=== PATIENT | male | born 1975 | race Caucasian/White ===

== ENCOUNTER 2017-01-10 15:30 | Outpatient (CLI) | payer OTHER ==
[2014-11-04 15:41] VITALS: BP 135/98
== END 2017-01-10 15:32 ==
LOC: LAB 15:30
PROVIDERS: ATTEND Physician Assistant
DX: N52.9 Male erectile dysfunction, unspecified (principal)
CPT/HCPCS: 36415; 84402

== ENCOUNTER 2017-02-03 07:44 | Outpatient (CLI) | payer OTHER ==
[2014-11-04 15:41] VITALS: BP 135/98
[2017-02-03 16:02] LABS: LH (LUTEINIZING HORMONE) 4.4 mIU/mL (1.7-8.6); TESTOSTERONE TOTAL 246.2 ng/dL (249.0-836.0)
== END 2017-02-03 07:46 ==
LOC: LAB 07:44
PROVIDERS: ATTEND Specialist
DX: E29.1 Testicular hypofunction (principal)
CPT/HCPCS: 36415; 83001; 83002; 84146; 84402; 84403

== ENCOUNTER 2017-02-26 07:15 | Outpatient (CLI) | payer OTHER ==
[2014-11-04 15:41] VITALS: BP 135/98
[2017-02-26 07:31] LABS: EOSINOPHILS % 4.1 % (0.0-6.8); MEAN CORPUSCULAR HEMOGLOBIN 28.9 pg (28.0-34.0); MEAN CORPUSCULAR VOLUME 89.4 fl (80.0-100.0); NEUTROPHILS # 3.6 # k/uL (1.4-7.7)
== END 2017-02-26 07:16 ==
LOC: LAB 07:15
PROVIDERS: ATTEND Specialist
DX: E29.1 Testicular hypofunction (principal)
CPT/HCPCS: 36415; 80061; 85025

== ENCOUNTER 2017-03-14 08:18 | Outpatient (CLI) | payer SELFPAY ==
[2014-11-04 15:41] VITALS: BP 135/98
== END 2017-03-14 08:20 ==
LOC: LAB 08:18
PROVIDERS: ATTEND Internal Medicine Endocrinology, Diabetes & Metabolism
DX: E29.1 Testicular hypofunction (principal)
CPT/HCPCS: 36415; 84402; 84403

== ENCOUNTER 2017-07-23 07:54 | Outpatient (CLI) | payer OTHER ==
[2014-11-04 15:41] VITALS: BP 135/98
[2017-07-23 08:46] LABS: BASOPHILS % 1.4 (0.0-1.5); EOSINOPHILS % 4.3 % (0.0-6.8); MEAN CORPUSCULAR HEMOGLOBIN 29.8 pg (28.0-34.0); MONOCYTES % 9.1 % (0.0-11.0); NEUTROPHILS # 3.5 # k/uL (1.4-7.7)
== END 2017-07-23 07:55 ==
LOC: LAB 07:54
PROVIDERS: ATTEND Specialist
DX: E29.1 Testicular hypofunction (principal)
CPT/HCPCS: 36415; 80061; 84153; 84402; 84403; 85025

== ENCOUNTER 2017-08-07 16:26 | Emergency (ER) | payer SELFPAY ==
[2017-08-07] MEDS ORDERED: 0.9 % SODIUM CHLORIDE 1,000 ML IV ONE ×2 (16:31→17:22)
[2017-08-07] MEDS ORDERED: LORazepam 2 MG/ML VIAL IVP ONE ×2 (16:33→16:39)
[2017-08-07] MEDS ORDERED: LORazepam 2 MG/ML VIAL ONE (16:33)
[2017-08-07] MEDS ORDERED: DIAZEPAM 5 MG/ML DISP.SYRIN IVP ONE (16:40)
[2017-08-07 16:45] LABS: BASOPHILS % 0.9 (0.0-1.5); EOSINOPHILS % 1.5 % (0.0-6.8); MEAN CORPUSCULAR HEMOGLOBIN 29.4 pg (28.0-34.0); MEAN CORPUSCULAR VOLUME 85.9 fl (80.0-100.0); MONOCYTES % 5.9 % (0.0-11.0); NEUTROPHILS # 11.5 # k/uL (1.4-7.7)
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
[2017-08-07 16:53] LABS: eGFR (African) > 60; eGFR (Non-African) > 60
[2017-08-07] MEDS ORDERED: AMITRIPTYLINE HCL 25 MG TABLET PO ONE (17:11)
--- NOTE | 2017-08-07 17:31 | Diagnostic Imaging Report ---
VALARIE NGO~ [facility] [id number] [facility] [address] [place], [place]. [address] ~ ~ ~ ~ Report Submission Date: Aug 07, 2017 5:10:59 PM CDT Patient ~ Study Name: YARELY ADORNO ~ Date: Aug 07, 2017 4:54:33 PM CDT ~ Modality Type: CR Gender: M ~ Description: CHEST : 73 ~ Institution: [facility] Physician: VALARIE NGO ~ ~ ~ ~ Examination: Portable chest History: Chest discomfort Comparison exam: None available Findings: Single view of the chest demonstrates a normal cardiac and mediastinal silhouette. Lordotic positioning. Lung burks without focal infiltrate. No effusion. Osseous structures are appropriate for age. Impression: No acute pulmonary process. ~ Electronically signed on Aug 07, 2017 5:10:59 PM CDT by: Marquis RAMIREZ
[2017-08-07 18:34] VITALS: BP 139/74
== END 2017-08-07 18:31 | disposition home or self-care (01) ==
LOC: ED 16:26
DX: E86.0 Dehydration (principal); Q07.00 Arnold-Chiari syndrome without spina bifida or hydrocephalus
CPT/HCPCS: 71010; 80053; 85025; J2060; J3360; J7030; 96361; 96374; 96375; 99284; S1016